=== PATIENT | female | born 1965 | race African-American/Black ===

== ENCOUNTER 2020-05-02 11:37 | Inpatient (IN) ==
[2020-05-02] MEDS ORDERED: SODIUM CHLORIDE 0.9% 1,000 ML IV STA ×2 (12:28→14:14)
[2020-05-02] MEDS ORDERED: cefTRIAXone 1,000 MG in SODIUM CHLORIDE 0.9% 100 ML IV STA (12:28)
[2020-05-02] MEDS ORDERED: DEXAMETHASONE 4 MG/1 ML VIAL IM STA (12:28)
[2020-05-02 13:21] LABS: Basophils % 0.1 % (0.0-0.8); Hematocrit 46.4 VOL% (35.7-47.0); Hemoglobin 14.7 GM/DL (12.0-16.0); Immature Granulocytes % 0.6 %; Immature Granulocytes Absolute 0.06 #; Lymphocytes # 0.7 10*3/uL (1.4-4.0); Lymphocytes % 6.2 % (21.3-54.2); Mean Corpuscular HGB Conc 31.7 GM/DL (32-36); Mean Corpuscular Volume 75.1 FL (87-102); Monocytes % 4.8 % (1.7-12.7); Neutrophils % 88.3 % (38.7-73.9); Platelet Count 211 T/CUMM (130-400); Red Blood Count 6.18 MC/CUMM (3.8-5.5); Red Cell Distribution Width 17.1 % (9.3-17.3); White Blood Count 10.7 T/CUMM (4-12)
[2020-05-02 13:45] LABS: Calcium 8.9 MG/DL (8.5-10.1); Osmolality,Calculated 317.1 MOS/KG (273-304)
[2020-05-02 13:53] LABS: Ferritin 619.4 ng/ml (8-252)
[2020-05-02 13:58] LABS: Bacteria,Urine Occasional /HPF (Few); Bilirubin,Urine Negative (Negative); Blood, Urine Negative (Negative); Glucose,Urine (UA) 50 mg/dL (Negative); Hyaline Casts,Urine 1 /LPF (0-3); Ketones,Urine Negative (Negative); Mucus,Urine Occasional /LPF (Occasional); Nitrite,Urine Negative (Negative); Protein,Urine 30 MG/DL; Squamous Epithelial Cell,Urine Occasional /HPF (0-10); Urine Appearance Slightly Hazy (Clear); Urine Color Yellow (Yellow); Urine Specific Gravity 1.016 (1.001-1.035); Urine Urobilinogen < 2.0 EU/DL (0.2-1.0); WBC,Urine 1 /HPF (0-6)
[2020-05-02] MEDS ORDERED: ONDANSETRON 4 MG/2 ML VIAL IV PRN (15:09)
[2020-05-02] MEDS ORDERED: GLUCAGON 1 MG VIAL IM PRN ×2 (15:09)
[2020-05-02] MEDS ORDERED: ACETAMINOPHEN 325 MG TABLET PO PRN (15:09)
[2020-05-02] MEDS ORDERED: DEXTROSE 50% 25 GM/50 ML VIAL IV PRN ×2 (15:09)
[2020-05-02] MEDS ORDERED: ENOXAPARIN 40 MG/0.4 ML SYRINGE SUBCUT SCH (15:30)
[2020-05-02] MEDS: INSULIN LISPRO 100 UNIT/ML SUBCUT SCH ×3 (16:27→21:46)
[2020-05-02] MEDS: AZITHROMYCIN INJ 500 MG in SODIUM CHLORIDE 0.9% 250 ML IV SCH (17:47)
[2020-05-02] MEDS: SODIUM CHLORIDE 0.45% 1,000 ML IV SCH (17:47)
[2020-05-02] MEDS: ALBUTEROL INHALER 18 GM INH SCH (18:23)
[2020-05-02] MEDS: HEPARIN 5,000 UNIT/1 ML VIAL SUBCUT SCH (21:46)
[2020-05-03] MEDS: ALBUTEROL INHALER 18 GM INH SCH ×4 (01:59→18:56)
[2020-05-03 06:17] LABS: Hematocrit 41.2 VOL% (35.7-47.0); Hemoglobin 12.9 GM/DL (12.0-16.0); Immature Granulocytes % 0.7 %; Immature Granulocytes Absolute 0.05 #; Lymphocytes # 0.6 10*3/uL (1.4-4.0); Lymphocytes % 8.5 % (21.3-54.2); Mean Corpuscular HGB Conc 31.3 GM/DL (32-36); Mean Corpuscular Volume 76.9 FL (87-102); Mean Platelet Volume 11.6 FL (9.6-12.0); Monocytes % 4.8 % (1.7-12.7); Platelet Count 200 T/CUMM (130-400); Red Blood Count 5.36 MC/CUMM (3.8-5.5); Red Cell Distribution Width 16.2 % (9.3-17.3); White Blood Count 7.5 T/CUMM (4-12)
[2020-05-03] MEDS: SODIUM CHLORIDE 0.45% 1,000 ML IV SCH ×2 (06:30→20:25)
[2020-05-03 06:36] LABS: Calcium 8.4 MG/DL (8.5-10.1); Osmolality,Calculated 318.3 MOS/KG (273-304)
[2020-05-03 06:45] LABS: Hypochromasia 1+; Lymphocytes 7 % (20-55); Segmented Neutrophils 88 % (50-85); Total Cells Counted 100
[2020-05-03 06:46] LABS: Microcytosis 1+; Platelet Estimate Normal
[2020-05-03] MEDS: DEXAMETHASONE 4 MG/1 ML VIAL IV SCH (08:58)
[2020-05-03] MEDS: INSULIN LISPRO 100 UNIT/ML SUBCUT SCH ×4 (08:58→20:25)
[2020-05-03] MEDS: INSULIN GLARGINE 100 UNIT/ML SUBCUT SCH ×2 (08:58→20:25)
[2020-05-03] MEDS: HEPARIN 5,000 UNIT/1 ML VIAL SUBCUT SCH ×2 (08:58→20:24)
[2020-05-03] MEDS: cefTRIAXone 1,000 MG in SYRINGE 1 EACH IV SCH (09:03)
[2020-05-03] MEDS: AZITHROMYCIN INJ 500 MG in SODIUM CHLORIDE 0.9% 250 ML IV SCH (15:16)
[2020-05-04] MEDS: ALBUTEROL INHALER 18 GM INH SCH ×4 (00:25→18:01)
[2020-05-04 06:29] LABS: Basophils % 0.2 % (0.0-0.8); Hematocrit 39.6 VOL% (35.7-47.0); Hemoglobin 12.4 GM/DL (12.0-16.0); Immature Granulocytes % 0.9 %; Immature Granulocytes Absolute 0.06 #; Lymphocytes # 0.8 10*3/uL (1.4-4.0); Lymphocytes % 12.9 % (21.3-54.2); Mean Corpuscular HGB Conc 31.3 GM/DL (32-36); Mean Corpuscular Volume 76.3 FL (87-102); Mean Platelet Volume 11.8 FL (9.6-12.0); Monocytes % 6.1 % (1.7-12.7); Neutrophils % 79.9 % (38.7-73.9); Platelet Count 195 T/CUMM (130-400); Red Blood Count 5.19 MC/CUMM (3.8-5.5); Red Cell Distribution Width 16.1 % (9.3-17.3); White Blood Count 6.5 T/CUMM (4-12)
[2020-05-04 06:55] LABS: Lymphocytes 8 % (20-55); Segmented Neutrophils 88 % (50-85); Total Cells Counted 100
[2020-05-04 06:56] LABS: Microcytosis 1+; Platelet Estimate Normal
[2020-05-04 07:07] LABS: Calcium 8.9 MG/DL (8.5-10.1); Osmolality,Calculated 315.9 MOS/KG (273-304)
[2020-05-04] MEDS: INSULIN LISPRO 100 UNIT/ML SUBCUT SCH ×4 (08:31→20:50)
[2020-05-04] MEDS: DEXAMETHASONE 4 MG/1 ML VIAL IV SCH (08:31)
[2020-05-04] MEDS: HEPARIN 5,000 UNIT/1 ML VIAL SUBCUT SCH ×2 (08:31→20:49)
[2020-05-04] MEDS: INSULIN GLARGINE 100 UNIT/ML SUBCUT SCH ×2 (08:31→20:51)
[2020-05-04] MEDS: cefTRIAXone 1,000 MG in SYRINGE 1 EACH IV SCH (08:35)
[2020-05-04] MEDS: SODIUM CHLORIDE 0.45% 1,000 ML IV SCH (10:20)
[2020-05-04] MEDS: NYSTATIN 500,000 UNIT/5 ML UDCUP SWISH/SWAL SCH ×3 (14:34→20:51)
[2020-05-04] MEDS: AZITHROMYCIN INJ 500 MG in SODIUM CHLORIDE 0.9% 250 ML IV SCH (16:27)
[2020-05-05] MEDS: ALBUTEROL INHALER 18 GM INH SCH ×4 (00:25→21:53)
[2020-05-05] MEDS: SODIUM CHLORIDE 0.45% 1,000 ML IV SCH ×3 (00:26→21:53)
[2020-05-05 06:41] LABS: Calcium 8.6 MG/DL (8.5-10.1); Osmolality,Calculated 305.3 MOS/KG (273-304)
[2020-05-05 06:44] LABS: Basophils % 0.2 % (0.0-0.8); Hematocrit 35.6 VOL% (35.7-47.0); Hemoglobin 11.1 GM/DL (12.0-16.0); Immature Granulocytes % 1.5 %; Immature Granulocytes Absolute 0.07 #; Mean Corpuscular HGB Conc 31.2 GM/DL (32-36); Mean Corpuscular Volume 76.2 FL (87-102); Mean Platelet Volume 12.3 FL (9.6-12.0); Monocytes % 6.8 % (1.7-12.7); Neutrophils % 71.5 % (38.7-73.9); Platelet Count 193 T/CUMM (130-400); Red Blood Count 4.67 MC/CUMM (3.8-5.5); White Blood Count 4.7 T/CUMM (4-12)
[2020-05-05 07:21] LABS: Hypochromasia 1+; Lymphocytes 19 % (20-55); Microcytosis 1+; Ovalocytes Slight; Platelet Estimate Adequate; Segmented Neutrophils 76 % (50-85); Total Cells Counted 100
[2020-05-05] MEDS: cefTRIAXone 1,000 MG in SYRINGE 1 EACH IV SCH (08:59)
[2020-05-05] MEDS: NYSTATIN 500,000 UNIT/5 ML UDCUP SWISH/SWAL SCH ×4 (08:59→21:51)
[2020-05-05] MEDS: DEXAMETHASONE 4 MG/1 ML VIAL IV SCH (09:01)
[2020-05-05] MEDS: HEPARIN 5,000 UNIT/1 ML VIAL SUBCUT SCH ×2 (09:01→21:53)
[2020-05-05] MEDS: INSULIN LISPRO 100 UNIT/ML SUBCUT SCH ×4 (09:02→21:51)
[2020-05-05] MEDS: INSULIN GLARGINE 100 UNIT/ML SUBCUT SCH ×2 (09:02→21:50)
[2020-05-05] MEDS: AZITHROMYCIN INJ 500 MG in SODIUM CHLORIDE 0.9% 250 ML IV SCH (16:20)
[2020-05-06] MEDS: ALBUTEROL INHALER 18 GM INH SCH ×4 (01:44→18:41)
[2020-05-06] MEDS: SODIUM CHLORIDE 0.45% 1,000 ML IV SCH ×2 (06:32→15:43)
[2020-05-06 06:48] LABS: Basophils % 0.2 % (0.0-0.8); Hematocrit 35.1 VOL% (35.7-47.0); Immature Granulocytes % 4.3 %; Lymphocytes # 1.3 10*3/uL (1.4-4.0); Lymphocytes % 27.6 % (21.3-54.2); Mean Corpuscular HGB Conc 31.3 GM/DL (32-36); Mean Platelet Volume 11.9 FL (9.6-12.0); NRBC # 0.02 10*3/uL; Neutrophils % 60.9 % (38.7-73.9); Platelet Count 203 T/CUMM (130-400); Red Blood Count 4.62 MC/CUMM (3.8-5.5); Red Cell Distribution Width 15.8 % (9.3-17.3); White Blood Count 4.6 T/CUMM (4-12)
[2020-05-06 08:23] LABS: Calcium 8.3 MG/DL (8.5-10.1); Osmolality,Calculated 302.9 MOS/KG (273-304)
[2020-05-06] MEDS: DEXAMETHASONE 4 MG/1 ML VIAL IV SCH (08:43)
[2020-05-06] MEDS: NYSTATIN 500,000 UNIT/5 ML UDCUP SWISH/SWAL SCH ×4 (08:44→21:17)
[2020-05-06] MEDS: INSULIN GLARGINE 100 UNIT/ML SUBCUT SCH ×2 (08:45→21:18)
[2020-05-06] MEDS: INSULIN LISPRO 100 UNIT/ML SUBCUT SCH ×4 (08:55→21:17)
[2020-05-06] MEDS: cefTRIAXone 1,000 MG in SYRINGE 1 EACH IV SCH (08:55)
[2020-05-06] MEDS: HEPARIN 5,000 UNIT/1 ML VIAL SUBCUT SCH ×2 (08:55→21:17)
[2020-05-06] MEDS ORDERED: SODIUM CHLORIDE 0.45% 500 ML IV ONE (10:41)
[2020-05-06] MEDS: AZITHROMYCIN INJ 500 MG in SODIUM CHLORIDE 0.9% 250 ML IV SCH (15:43)
[2020-05-07] MEDS: ALBUTEROL INHALER 18 GM INH SCH ×3 (00:10→13:14)
[2020-05-07] MEDS: SODIUM CHLORIDE 0.45% 1,000 ML IV SCH ×3 (01:09→15:34)
[2020-05-07 06:19] LABS: Basophils % 0.7 % (0.0-0.8); Eosinophils % 0.7 % (0.00-10.9); Hematocrit 36.4 VOL% (35.7-47.0); Hemoglobin 11.5 GM/DL (12.0-16.0); Immature Granulocytes % 7.1 %; Immature Granulocytes Absolute 0.42 #; Lymphocytes # 1.7 10*3/uL (1.4-4.0); Lymphocytes % 29.2 % (21.3-54.2); Mean Corpuscular HGB Conc 31.6 GM/DL (32-36); Mean Corpuscular Volume 75.2 FL (87-102); Mean Platelet Volume 11.6 FL (9.6-12.0); Monocytes % 7.6 % (1.7-12.7); Neutrophils % 54.7 % (38.7-73.9); Platelet Count 209 T/CUMM (130-400); Red Blood Count 4.84 MC/CUMM (3.8-5.5); Red Cell Distribution Width 15.5 % (9.3-17.3); White Blood Count 5.9 T/CUMM (4-12)
[2020-05-07 06:51] LABS: Band Neutrophils 1 % (0-10); Calcium 8.5 MG/DL (8.5-10.1); Lymphocytes 29 % (20-55); Osmolality,Calculated 298.1 MOS/KG (273-304); Platelet Estimate Adequate; Segmented Neutrophils 60 % (50-85); Total Cells Counted 100
[2020-05-07 06:52] LABS: Hypochromasia 1+; Microcytosis 1+
[2020-05-07] MEDS: INSULIN LISPRO 100 UNIT/ML SUBCUT SCH ×2 (07:24→10:48)
[2020-05-07] MEDS ORDERED: POTASSIUM CHLORIDE 20 MEQ TABLET PO ONE (08:03)
[2020-05-07] MEDS: NYSTATIN 500,000 UNIT/5 ML UDCUP SWISH/SWAL SCH ×2 (08:52→13:14)
[2020-05-07] MEDS: INSULIN GLARGINE 100 UNIT/ML SUBCUT SCH (08:53)
[2020-05-07] MEDS: cefTRIAXone 1,000 MG in SYRINGE 1 EACH IV SCH (08:53)
[2020-05-07] MEDS: DEXAMETHASONE 4 MG/1 ML VIAL IV SCH (09:20)
[2020-05-07] MEDS: HEPARIN 5,000 UNIT/1 ML VIAL SUBCUT SCH (09:25)
[2020-05-07 11:20] VITALS: BP 125/64
[2020-05-07] MEDS: AZITHROMYCIN INJ 500 MG in SODIUM CHLORIDE 0.9% 250 ML IV SCH (15:34)
== END 2020-05-07 17:00 | disposition home or self-care (01) | DRG 871 ==
LOC: N.ED 11:37 → N.EDINP 11:37 → SUATTDRO 15:09 → N.EDINP 16:29 → N.2E 17:03
PROVIDERS: ADMIT Hospitalist; ATTEND Family Medicine

== ENCOUNTER 2020-05-20 14:31 | Observation (INO) ==
[2020-05-20] MEDS ORDERED: SODIUM CHLORIDE 0.45% 1,000 ML IV ONE (16:55)
[2020-05-20 17:15] LABS: Basophils % 0.4 % (0.0-0.8); Eosinophils # 0.1 10*3/uL (0.0-0.87); Eosinophils % 2.4 % (0.00-10.9); Hematocrit 46.3 VOL% (35.7-47.0); Hemoglobin 14.3 GM/DL (12.0-16.0); Immature Granulocytes % 0.2 %; Immature Granulocytes Absolute 0.01 #; Lymphocytes # 1.3 10*3/uL (1.4-4.0); Lymphocytes % 29.4 % (21.3-54.2); Mean Corpuscular HGB Conc 30.9 GM/DL (32-36); Mean Corpuscular Volume 77.3 FL (87-102); Mean Platelet Volume 11.9 FL (9.6-12.0); Monocytes % 9.7 % (1.7-12.7); Neutrophils % 57.9 % (38.7-73.9); Platelet Count 151 T/CUMM (130-400); Red Blood Count 5.99 MC/CUMM (3.8-5.5); Red Cell Distribution Width 18.2 % (9.3-17.3); White Blood Count 4.5 T/CUMM (4-12)
[2020-05-20 17:43] LABS: Albumin 3.5 G/DL (3.4-5.0); Bilirubin,Total 0.9 MG/DL (0.2-1.0); Calcium 9.6 MG/DL (8.5-10.1); Osmolality,Calculated 304.6 MOS/KG (273-304); Potassium 3.3 MMOL/L (3.5-5.1); Total Protein 8.1 G/DL (6.4-8.3)
[2020-05-20 18:49] LABS: Eosinophils 2 % (0-10); Hypochromasia 1+; Lymphocytes 27 % (20-55); Microcytosis 1+; Reactive Lymphocytes 1+; Segmented Neutrophils 63 % (50-85); Total Cells Counted 100
[2020-05-20 18:50] LABS: Platelet Estimate Normal
[2020-05-20] MEDS ORDERED: DEXTROSE 50% 25 GM/50 ML VIAL IV PRN ×2 (19:32→19:35)
[2020-05-20] MEDS ORDERED: GLUCAGON 1 MG VIAL IM PRN ×2 (19:32→19:35)
[2020-05-20] MEDS ORDERED: ONDANSETRON 4 MG/2 ML VIAL IV PRN (19:32)
[2020-05-20] MEDS ORDERED: ALBUTEROL 2.5 MG/3 ML NEB RESP TX PRN (19:34)
[2020-05-20] MEDS ORDERED: hydrALAZINE 20 MG/1 ML VIAL IV PRN (19:35)
[2020-05-20] MEDS: INSULIN REGULAR 100 UNIT/ML SUBCUT SCH (21:47)
[2020-05-20] MEDS: SODIUM CHLORIDE 0.45% 1,000 ML IV SCH (21:49)
[2020-05-20] MEDS: ENOXAPARIN 40 MG/0.4 ML SYRINGE SUBCUT SCH (21:50)
[2020-05-21] MEDS: SODIUM CHLORIDE 0.45% 1,000 ML IV SCH (05:54)
[2020-05-21 06:26] LABS: Basophils % 0.5 % (0.0-0.8); Eosinophils # 0.1 10*3/uL (0.0-0.87); Eosinophils % 3.2 % (0.00-10.9); Hematocrit 38.6 VOL% (35.7-47.0); Hemoglobin 11.9 GM/DL (12.0-16.0); Immature Granulocytes % 0.3 %; Immature Granulocytes Absolute 0.01 #; Lymphocytes # 1.2 10*3/uL (1.4-4.0); Lymphocytes % 32.1 % (21.3-54.2); Mean Corpuscular HGB Conc 30.8 GM/DL (32-36); Mean Corpuscular Volume 78.9 FL (87-102); Mean Platelet Volume 12.7 FL (9.6-12.0); Monocytes % 11.1 % (1.7-12.7); Neutrophils % 52.8 % (38.7-73.9); Platelet Count 108 T/CUMM (130-400); Red Blood Count 4.89 MC/CUMM (3.8-5.5); Red Cell Distribution Width 17.4 % (9.3-17.3); White Blood Count 3.8 T/CUMM (4-12)
[2020-05-21 06:53] LABS: Albumin 2.9 G/DL (3.4-5.0); Bilirubin,Total 1.5 MG/DL (0.2-1.0); Calcium 8.4 MG/DL (8.5-10.1); Osmolality,Calculated 297.1 MOS/KG (273-304); Potassium 2.8 MMOL/L (3.5-5.1); Risk Ratio 5.5; Total Protein 6.4 G/DL (6.4-8.3); VLDL CHOLESTEROL 22.6 MG/DL
[2020-05-21 07:09] LABS: Anisocytosis 1+; Band Neutrophils 2 % (0-10); Eosinophils 8 % (0-10); Lymphocytes 27 % (20-55); Platelet Estimate Adequate; Segmented Neutrophils 51 % (50-85); Total Cells Counted 100
[2020-05-21] MEDS: POTASSIUM CHLORIDE 20 MEQ TABLET PO PRN ×3 (07:09→14:07)
[2020-05-21 07:36] LABS: Bilirubin,Urine Negative (Negative); Blood, Urine Negative (Negative); Glucose,Urine (UA) Negative (Negative); Ketones,Urine 20 mg/dL (Negative); Mucus,Urine Many /LPF (Occasional); Nitrite,Urine Negative (Negative); Protein,Urine 30 MG/DL; RBC,Urine 5 /HPF (0-4); Squamous Epithelial Cell,Urine Occasional /HPF (0-10); Urine Appearance Slightly Hazy (Clear); Urine Color Amber (Yellow); Urine Specific Gravity 1.019 (1.001-1.035); WBC,Urine 1 /HPF (0-6)
[2020-05-21] MEDS: INSULIN REGULAR 100 UNIT/ML SUBCUT SCH ×4 (08:13→21:49)
[2020-05-21] MEDS: ZINC GLUCONATE 50 MG TABLET PO SCH (08:27)
[2020-05-21] MEDS: PANTOPRAZOLE 40 MG TABLET PO SCH (08:28)
[2020-05-21] MEDS: ASCORBIC ACID 500 MG TABLET PO SCH (08:28)
[2020-05-21] MEDS: POTASSIUM CHLORIDE INJ 10 MEQ in DEXTROSE 5% 1,000 ML IV SCH (10:30)
[2020-05-21 12:14] LABS: Calcium 8.2 MG/DL (8.5-10.1); Osmolality,Calculated 293.4 MOS/KG (273-304)
[2020-05-21] MEDS ORDERED: MAGNESIUM SULF RIDER 2 GM in PREMIX 1 EACH IV ONE ×2 (13:13→15:00)
[2020-05-21] MEDS: LEVOFLOXACIN INJ 750 MG in PREMIX 1 EACH IV SCH (14:07)
[2020-05-21] MEDS ORDERED: SIMVASTATIN 20 MG TABLET PO SCH (21:00)
[2020-05-21] MEDS: ENOXAPARIN 40 MG/0.4 ML SYRINGE SUBCUT SCH (21:50)
[2020-05-22] MEDS: POTASSIUM CHLORIDE INJ 10 MEQ in DEXTROSE 5% 1,000 ML IV SCH (04:14)
[2020-05-22 06:08] LABS: Basophils % 0.3 % (0.0-0.8); Eosinophils # 0.1 10*3/uL (0.0-0.87); Eosinophils % 2.8 % (0.00-10.9); Hematocrit 35.6 VOL% (35.7-47.0); Hemoglobin 11.3 GM/DL (12.0-16.0); Immature Granulocytes % 0.3 %; Immature Granulocytes Absolute 0.01 #; Lymphocytes % 32.6 % (21.3-54.2); Mean Corpuscular HGB Conc 31.7 GM/DL (32-36); Mean Corpuscular Volume 77.2 FL (87-102); Mean Platelet Volume 11.7 FL (9.6-12.0); Monocytes % 10.3 % (1.7-12.7); Neutrophils % 53.7 % (38.7-73.9); Platelet Count 102 T/CUMM (130-400); Red Blood Count 4.61 MC/CUMM (3.8-5.5); White Blood Count 3.2 T/CUMM (4-12)
[2020-05-22 06:32] LABS: Calcium 8.1 MG/DL (8.5-10.1); Osmolality,Calculated 289.7 MOS/KG (273-304); Potassium 2.9 MMOL/L (3.5-5.1)
[2020-05-22] MEDS: POTASSIUM CHLORIDE 20 MEQ TABLET PO PRN ×2 (06:56→08:22)
[2020-05-22] MEDS: INSULIN REGULAR 100 UNIT/ML SUBCUT SCH ×2 (07:28→12:59)
[2020-05-22] MEDS: ASCORBIC ACID 500 MG TABLET PO SCH (08:22)
[2020-05-22] MEDS: PANTOPRAZOLE 40 MG TABLET PO SCH (08:22)
[2020-05-22] MEDS: ZINC GLUCONATE 50 MG TABLET PO SCH (08:22)
[2020-05-22] MEDS ORDERED: POTASSIUM CHLORIDE 20 MEQ TABLET PO ONE (08:40)
[2020-05-22] MEDS ORDERED: LEVOFLOXACIN 750 MG TABLET PO SCH (10:00)
[2020-05-22 10:42] LABS: Calcium 8.1 MG/DL (8.5-10.1); Osmolality,Calculated 281.3 MOS/KG (273-304)
[2020-05-22 11:37] VITALS: BP 135/99
[2020-05-22] MEDS: LEVOFLOXACIN INJ 750 MG in PREMIX 1 EACH IV SCH (12:59)
== END 2020-05-22 13:30 | disposition home or self-care (01) ==
LOC: N.EDINP 14:31 → N.ED 14:31 → N.3E 19:45
PROVIDERS: ADMIT Internal Medicine; ATTEND Internal Medicine

== ENCOUNTER 2020-06-06 16:50 | Observation (INO) ==
[2020-06-06] MEDS ORDERED: SODIUM CHLORIDE 0.9% 1,000 ML IV STA ×2 (17:12→18:13)
[2020-06-06 17:22] LABS: Basophils # 0.1 10*3/uL (0.0-0.2); Basophils % 0.6 % (0.0-0.8); Eosinophils % 0.1 % (0.00-10.9); Hematocrit 47.3 VOL% (35.7-47.0); Hemoglobin 14.8 GM/DL (12.0-16.0); Immature Granulocytes % 0.6 %; Immature Granulocytes Absolute 0.05 #; Lymphocytes % 23.4 % (21.3-54.2); Mean Corpuscular HGB Conc 31.3 GM/DL (32-36); Mean Corpuscular Volume 76.9 FL (87-102); Mean Platelet Volume 12.3 FL (9.6-12.0); Monocytes % 8.3 % (1.7-12.7); Platelet Count 292 T/CUMM (130-400); Red Blood Count 6.15 MC/CUMM (3.8-5.5); Red Cell Distribution Width 18.9 % (9.3-17.3); White Blood Count 8.4 T/CUMM (4-12)
[2020-06-06 17:37] LABS: INR 1.1; PT Patient Result 11.9 SECS (9.8-11.9); Partial Thromboplastin Time 20.7 SECS (23.9-33.8)
[2020-06-06 17:44] LABS: Bilirubin,Total 0.8 MG/DL (0.2-1.0); Calcium 9.3 MG/DL (8.5-10.1); Osmolality,Calculated 307.1 MOS/KG (273-304); Total Protein 7.3 G/DL (6.4-8.3)
[2020-06-06 18:07] LABS: Bilirubin,Urine Negative (Negative); Blood, Urine Negative (Negative); Glucose,Urine (UA) Negative (Negative); Hyaline Casts,Urine 1 /LPF (0-3); Ketones,Urine 5 mg/dL (Negative); Mucus,Urine Occasional /LPF (Occasional); Nitrite,Urine Negative (Negative); Protein,Urine Negative; RBC,Urine 3 /HPF (0-4); Squamous Epithelial Cell,Urine Occasional /HPF (0-10); Urine Appearance CLOUDY (Clear); Urine Color Yellow (Yellow); Urine Specific Gravity 1.013 (1.001-1.035); Urine Urobilinogen < 2.0 EU/DL (0.2-1.0); WBC,Urine 6 /HPF (0-6)
[2020-06-06] MEDS ORDERED: ONDANSETRON 4 MG/2 ML VIAL IV PRN (18:47)
[2020-06-06] MEDS ORDERED: DEXTROSE 50% 25 GM/50 ML VIAL IV PRN ×2 (18:47→18:51)
[2020-06-06] MEDS ORDERED: ACETAMINOPHEN 325 MG TABLET PO PRN (18:47)
[2020-06-06] MEDS ORDERED: GLUCAGON 1 MG VIAL IM PRN (18:51)
[2020-06-06] MEDS: SODIUM CHLORIDE 0.9% 1,000 ML IV SCH (22:36)
[2020-06-06] MEDS: INSULIN REGULAR 100 UNIT/ML SUBCUT SCH (22:36)
[2020-06-06] MEDS: ENOXAPARIN 30 MG/0.3 ML SYRINGE SUBCUT SCH (22:36)
[2020-06-07 05:29] LABS: Basophils % 0.6 % (0.0-0.8); Hematocrit 41.7 VOL% (35.7-47.0); Immature Granulocytes % 0.6 %; Immature Granulocytes Absolute 0.04 #; Lymphocytes # 1.9 10*3/uL (1.4-4.0); Lymphocytes % 27.4 % (21.3-54.2); Mean Corpuscular HGB Conc 31.2 GM/DL (32-36); Mean Corpuscular Volume 79.4 FL (87-102); Mean Platelet Volume 11.9 FL (9.6-12.0); Monocytes % 8.9 % (1.7-12.7); Neutrophils % 62.5 % (38.7-73.9); Platelet Count 196 T/CUMM (130-400); Red Blood Count 5.25 MC/CUMM (3.8-5.5); Red Cell Distribution Width 18.8 % (9.3-17.3); White Blood Count 6.9 T/CUMM (4-12)
[2020-06-07 05:49] LABS: Albumin 3.2 G/DL (3.4-5.0); Bilirubin,Total 1.1 MG/DL (0.2-1.0); Calcium 8.6 MG/DL (8.5-10.1); Total Protein 6.6 G/DL (6.4-8.3)
[2020-06-07] MEDS: SODIUM CHLORIDE 0.9% 1,000 ML IV SCH ×2 (06:13→10:18)
[2020-06-07] MEDS: INSULIN REGULAR 100 UNIT/ML SUBCUT SCH ×4 (07:32→20:24)
[2020-06-07] MEDS ORDERED: PANTOPRAZOLE 40 MG TABLET PO SCH (09:00)
[2020-06-07] MEDS ORDERED: POTASSIUM CHLORIDE 20 MEQ TABLET PO ONE (09:12)
[2020-06-07] MEDS: DEXTROSE 5% 1,000 ML IV SCH ×2 (10:21→20:23)
[2020-06-07] MEDS ORDERED: ALBUTEROL 2.5 MG/3 ML NEB RESP TX PRN (13:10)
[2020-06-07] MEDS ORDERED: DOCUSATE SODIUM 100 MG CAPSULE PO PRN (13:19)
[2020-06-07] MEDS: ENOXAPARIN 30 MG/0.3 ML SYRINGE SUBCUT SCH (20:24)
[2020-06-08 05:18] LABS: Bacteria,Urine Occasional /HPF (Few); Bilirubin,Urine Negative (Negative); Blood, Urine Negative (Negative); Glucose,Urine (UA) Negative (Negative); Hyaline Casts,Urine 1 /LPF (0-3); Ketones,Urine Negative (Negative); Mucus,Urine Occasional /LPF (Occasional); Nitrite,Urine Negative (Negative); Protein,Urine Negative; RBC,Urine 2 /HPF (0-4); Squamous Epithelial Cell,Urine Moderate /HPF (0-10); Urine Appearance CLOUDY (Clear); Urine Color Yellow (Yellow); Urine Specific Gravity 1.015 (1.001-1.035); Urine Urobilinogen < 2.0 EU/DL (0.2-1.0); WBC,Urine 5 /HPF (0-6)
[2020-06-08] MEDS: DEXTROSE 5% 1,000 ML IV SCH (05:40)
[2020-06-08] MEDS: INSULIN REGULAR 100 UNIT/ML SUBCUT SCH ×2 (08:25→12:02)
[2020-06-08] MEDS ORDERED: FAMOTIDINE 20 MG TABLET PO SCH (09:00)
[2020-06-08] MEDS ORDERED: ASCORBIC ACID 500 MG TABLET PO SCH (09:00)
[2020-06-08] MEDS ORDERED: ZINC GLUCONATE 50 MG TABLET PO SCH (09:00)
[2020-06-08] MEDS ORDERED: SIMVASTATIN 20 MG TABLET PO SCH (09:00)
[2020-06-08 09:04] LABS: Calcium 8.5 MG/DL (8.5-10.1); Osmolality,Calculated 287.3 MOS/KG (273-304)
[2020-06-08 15:10] VITALS: BP 112/68
== END 2020-06-08 15:48 | disposition home or self-care (01) ==
LOC: EDBD → EDUNIT# → N.ED 16:50 → N.EDINP 16:50 → N.TELEN 21:04
PROVIDERS: ADMIT Internal Medicine Geriatric Medicine; ATTEND Internal Medicine Geriatric Medicine